=== PATIENT | male | born 1965 ===

== ENCOUNTER 2021-02-22 10:22 | Emergency (ER) | payer MEDICAID ==
[~2021-02-22] VITALS: Ht 167.6 cm; Wt 86.2 kg
[2021-02-22] MEDS ORDERED: METOPROLOL SUCC50 MG PO (10:38)
[2021-02-22] MEDS ORDERED: PROTONIX40 M1 PO (10:38)
[2021-02-22] MEDS ORDERED: COZAAR50 MG PO (10:39)
[2021-02-22] MEDS ORDERED: NORVASC10 MG PO (10:39)
[2021-02-22] MEDS ORDERED: LIPITOR10 MG PO (10:39)
[2021-02-22] MEDS ORDERED: DICYCLOMINE HCL20 MG PO (13:27)
[2021-02-22] MEDS ORDERED: LIDOCAINE HCL100 ML MT (13:27)
--- NOTE | 2021-02-23 07:18 | EKG ---
[facility] [address] [facility] [place], [place] [address] Signed Normal sinus rhythm Normal ECG No previous ECGs available Confirmed by YANCI FERNANDEZ MD ([id number] on 02/23/2021 7:17:43 AM Electronically Signed By: YANCI FERNANDEZ MD 02/23/2118 PATIENT NAME: TERE CARMONA Electrocardiogram DATE OF : 69 PHYSICIAN: YANCI FERNANDEZ MD REPORT #: [id number] REPORT IS CONFIDENTIAL AND NOT TO BE RELEASED WITHOUT AUTHORIZATION
== END 2021-02-22 13:50 | disposition home or self-care (01) ==
LOC: ED 10:22
DX: K21.9 Gastro-esophageal reflux disease without esophagitis (principal); I10 Essential (primary) hypertension; Z88.8 Allergy status to other drugs, medicaments and biological substances; Z79.899 Other long term (current) drug therapy
CPT/HCPCS: 83690; 84484; 93005; 93010; 99284-25